=== PATIENT | female | born 1970 | race Two or more races ===

== ENCOUNTER 2022-11-16 14:58 | Inpatient (IN) | payer OTHER ==
[~2022-11-16] VITALS: Ht 154.9 cm; Wt 38.6 kg
--- NOTE | 2022-11-16 16:53 | NUR ---
SE RECIBE PTE ALERTA ORIENTADA X3.PTE REFIERE TENER DOLOR ABDOMINAL FROYLAN,VOMITOS,PERDIDA DE APETITO,DEBELIDAD GENERAL.PTE CON HISTORIAL DE CA DE DR.MORALES FAROOQ.SE YOVANA S/V Y SE UBICA.
--- NOTE | 2022-11-16 20:42 | NUR ---
SE LE ORIENTA A PACIENTE SOBRE LAS ORDENES MEDICAS, REFIERE ENTEDER LAS MISMAS. SE CANALIZA Y SE LE COLOCA S/L, SE LE YOVANA LAS MUETRAS Y SE LE ADMINISTRAN LOS MEDICAMENTOS SOTO LAS ORDENES MEDICAS.
--- NOTE | 2022-11-17 00:11 | NUR ---
SE RECIBE PTE ALERTA Y ORIENTADA X3 EN CAMA CON BAR[place]AS ELEVADAS [place]. PTE CANALIZADA EN BRAZO DERECHO AAREA VICTOR MANUEL DE EDEMA Y DE ENROJECIMIENTO. PTE SATURANDO 91% SENTADA EN POSICION SEMI DIAZ, NO SE OBSERVA CON DISTRES RESPIRATORIO. SE LE COLOCA CANULA NASAL A 3L SOTO ORDEN VERBAL DE . SE EDUCA A PTE SOBRE TRATAMIENTO MEDICO.
--- NOTE | 2022-11-17 07:17 | NUR ---
PTE ALERTA,ESTABLE Y ORIENTADA.SE EDUCA SOBRE EL TRATAMIENTO QUE RECIBIRA EN EL HOSPITAL Y ESTA REFIERE ENTENDER.SE MANTIENE EN LA ESPERA DEL
== END 2022-11-18 13:18 | disposition home or self-care (01) | DRG 597 ==
LOC: ER 14:58 → SEC-K 11-17 12:26 → MEDJ 11-17 12:26
PROVIDERS: ADMIT Internal Medicine; ATTEND Internal Medicine
PROC: B020ZZZ Computerized Tomography (CT Scan) of Brain (ICD-10-PCS; 2022-11-16)
PROC: BW21ZZZ Computerized Tomography (CT Scan) of Abdomen and Pelvis (ICD-10-PCS; 2022-11-16)
PROC: 8E0ZXY6 Isolation (ICD-10-PCS; principal; 2022-11-17)
DX: C50.411 Malignant neoplasm of upper-outer quadrant of right female breast (principal); R65.20 Severe sepsis without septic shock; C78.00 Secondary malignant neoplasm of unspecified lung; C79.51 Secondary malignant neoplasm of bone; C78.7 Secondary malignant neoplasm of liver and intrahepatic bile duct; R18.0 Malignant ascites; C78.02 Secondary malignant neoplasm of left lung; N17.9 Acute kidney failure, unspecified; E44.0 Moderate protein-calorie malnutrition; J91.0 Malignant pleural effusion; C50.911 Malignant neoplasm of unspecified site of right female breast; Z51.5 Encounter for palliative care; Z17.0 Estrogen receptor positive status [ER+]; Z66 Do not resuscitate; D69.6 Thrombocytopenia, unspecified; Z20.822 Contact with and (suspected) exposure to COVID-19